=== PATIENT | male | born 2005 | race Caucasian/White ===

== ENCOUNTER 2024-11-17 20:05 | Emergency (ER) | payer OTHER ==
[~2024-11-17] VITALS: Ht 193 cm; Wt 86.2 kg
[2024-11-17] MEDS: IV NORMAL SALINE 500 ML IV ONE (20:10)
[2024-11-17] MEDS: ONDANSETRON 4 MG/2 ML VIAL IV ONE (20:10)
[2024-11-17] MEDS: MORPHINE SULFATE 4 MG/1 ML DISP.SYRIN IV ONE (20:10)
[2024-11-17] MEDS ORDERED: ONDANSETRON 4 MG/2 ML VIAL ONE (20:12)
[2024-11-17] MEDS ORDERED: MORPHINE SULFATE 4 MG/1 ML DISP.SYRIN ONE (20:12)
[2024-11-17] MEDS ORDERED: LIDOCAINE 1%-EPI 1:100,000 20 ML VIAL ONE (20:18)
[2024-11-17] MEDS ORDERED: TDAP DIPH,PERTUSS,TET VAC/PF 0.5 ML DISP.SYRIN IM ONE (21:22)
[2024-11-17] MEDS: TDAP DIPH,PERTUSS,TET VAC/PF 0.5 ML DISP.SYRIN IM ONE (21:30)
[2024-11-17] MEDS ORDERED: CEPH500C2 PO (21:40)
[2024-11-17] MEDS ORDERED: CEphaleXIN 500 MG CAPSULE ONE (21:46)
[2024-11-17] MEDS: CEphaleXIN 500 MG CAPSULE PO ONE (21:47)
[2024-11-17 22:01] VITALS: BP 117/78; O2SAT 97
== END 2024-11-17 21:45 | disposition home or self-care (01) ==
LOC: ER 20:10 → EDBD 20:10 → ER 21:45
DX: S66.821A Laceration of other specified muscles, fascia and tendons at wrist and hand level, right hand, initial encounter (principal); F17.200 Nicotine dependence, unspecified, uncomplicated; R55 Syncope and collapse; W25.XXXA Contact with sharp glass, initial encounter; Y93.89 Activity, other specified; Y92.89 Other specified places as the place of occurrence of the external cause; Y99.8 Other external cause status
CPT/HCPCS: 12002; 73120; 90471; 90715; 96361; 96374; 96375; 99284; J2270; J2405; J3490; J7040; A4606; A4663